=== PATIENT | male | born 1970 | race Caucasian/White ===

== ENCOUNTER 2021-02-05 05:12 | Emergency (ER) | payer BC ==
[~2021-02-05] VITALS: Ht 177.8 cm; Wt 102.1 kg
--- NOTE | 2021-02-05 05:22 | NUR ---
pt bib RA 83 for alcohol intoxication. Pt. was picked up by [facility] outside of [facility]. Pt. recently left a rehab center in [place]. Pt states he doesn't remember how he got there or what happened. Pt. vomited in ambulance. bgc in field was 112.
--- NOTE | 2021-02-05 05:29 | NUR ---
Dr. Saini at bedside for mse.
[2021-02-05] MEDS ORDERED: IV NORMAL SALINE 1000 ML BAG IV ONE (05:30)
[2021-02-05] MEDS ORDERED: ONDANSETRON 4 MG/2 ML VIAL IV ONE ×2 (05:30→08:15)
[2021-02-05] MEDS ORDERED: ONDANSETRON 4 MG/2 ML VIAL ONE ×2 (05:44→08:29)
--- NOTE | 2021-02-05 05:53 | NUR ---
Pt. states sober living facility he was released from is called [facility]. All side rails up, comfort measures offered. VSS. pt. is restless and emotionally labile but able to be calmed down with verbal reorientation at this time. Will continue to monitor.
[2021-02-05 06:13] LABS: MEAN CORPUSCULAR HEMOGLOBIN 34.4 uug (23.8-33.4); MEAN CORPUSCULAR VOLUME 96.8 fL (73.0-96.2); PLATELET COUNT (AUTO) 295 K/uL (152-348)
[2021-02-05 06:25] LABS: CARBON DIOXIDE 26 mmol/L (21-32); CHLORIDE 108 mmol/L (98-107); CREATININE 0.7 mg/dL (0.6-1.3); GLUCOSE 96 mg/dL (74-106); POTASSIUM 3.3 mmol/L (3.5-5.1); UREA NITROGEN, BLOOD 10 mg/dL (7-18)
[2021-02-05 06:26] LABS: ETHANOL 68 MG/DL (0-0)
--- NOTE | 2021-02-05 06:31 | NUR ---
Pts sp02 dropped to 91% on RA and pt. reported SOB. Pt. placed on 1L nc oxygen, sp02 is now 96%. Pt. reports that he "had a clot in his left lung in august, and is on Eliquis but has not been taking it" . Dr. Saini made aware.
[2021-02-05 06:33] LABS: ACETAMINOPHEN < 2.0 ug/mL (10-30); ALANINE AMINOTRANSFERASE 42 U/L (16-63); ALKALINE PHOSPHATASE 63 U/L (50-136); ASPARTATE AMINOTRANSFERASE 30 U/L (15-37); BILIRUBIN,DIRECT < 0.1 mg/dL (0.0-0.2); BILIRUBIN,TOTAL 0.2 mg/dL (0.2-1.0); TOTAL PROTEIN, SERUM 6.1 g/dL (6.4-8.2)
[2021-02-05 06:34] LABS: MAGNESIUM 1.6 mg/dL (1.8-2.4); PHOSPHOROUS 2.8 mg/dL (2.5-4.9)
[2021-02-05 07:30] LABS: *BILIRUBIN,URIN NEGATIVE (NEGATIVE); *BLOOD, URINE 2+ (NEGATIVE); *CLARITY,URINE CLEAR (CLEAR); *COLOR,URINE YELLOW (YELLOW); *KETONES,URINE TRACE (NEGATIVE); *UROBILINOGEN,URINE 0.2 E.U./dl (NORMAL); LEUKOCYTE ESTERASE ,URINE NEGATIVE (NEGATIVE); NITRITE, URINE NEGATIVE (NEGATIVE); PH,URINE 5.5 (5.0-8.0); UGLUCOSE NEGATIVE (NEGATIVE)
[2021-02-05] MEDS ORDERED: MAGNESIUM SULFATE/D5W 100 ML IV ONE (07:30)
[2021-02-05] MEDS ORDERED: MAGNESIUM SULFATE/D5W 200 ML ONE (07:34)
--- NOTE | 2021-02-05 07:34 | NUR ---
received patient in shift report from Jayne [place]
[2021-02-05 07:49] LABS: *AMPHETAMINE, URINE NEGATIVE (NEGATIVE); *CANNABINOID, URINE NEGATIVE (NEGATIVE); *COCCAINE, URINE NEGATIVE (NEGATIVE); *OPIATE, URINE NEGATIVE (NEGATIVE); *PHENCYCLIDINE SCREEN,URINE NEGATIVE (NEGATIVE)
[2021-02-05] MEDS ORDERED: IPRATROPIUM BROMIDE 0.5 MG/2.5 ML NEBU NEB ONE (08:15)
[2021-02-05] MEDS ORDERED: LORAZEPAM 2 MG/1 ML VIAL IV ONE (08:15)
[2021-02-05] MEDS ORDERED: PANTOPRAZOLE SODIUM 40 MG VIAL IV ONE (08:15)
[2021-02-05] MEDS ORDERED: ALBUTEROL SULFATE 2.5 MG/3 ML NEBU NEB ONE (08:15)
[2021-02-05] MEDS ORDERED: PANTOPRAZOLE SODIUM 40 MG VIAL ONE (08:29)
[2021-02-05] MEDS ORDERED: LORAZEPAM 2 MG/1 ML VIAL ONE (08:29)
[2021-02-05] MEDS ORDERED: ALBUTEROL SULFATE 2.5 MG/3 ML NEBU ONE (09:35)
[2021-02-05] MEDS ORDERED: IPRATROPIUM BROMIDE 0.5 MG/2.5 ML NEBU ONE (09:35)
[2021-02-05] MEDS ORDERED: NEOMY/BACITRA/POLYMYXIN B OINT UD PACKET TP ONE ×2 (10:15→10:22)
--- NOTE | 2021-02-05 10:21 | NUR ---
Triple antibiotic applied to right toe abrasion and dressed with nonadhereant ABD pad and coban wrap
--- NOTE | 2021-02-05 10:31 | NUR ---
[facility] called at this time and states they will arrange for patient to return to their detox center
[2021-02-05] MEDS ORDERED: TAMSULOSIN HCL 0.4 MG CAP.SR.24H ONE (10:49)
--- NOTE | 2021-02-05 11:55 | NUR ---
Spoke with Leonid to from [facility], Leonid states he will send a uber to [place] patient from ER and transfer to detox facility
[2021-02-05 12:24] LABS: WBC,URINE NONE SEEN /HPF (0-3)
[2021-02-05 12:25] LABS: BACTERIA,URINE NONE SEEN /HPF (NONE SEEN)
--- NOTE | 2021-02-05 13:25 | NUR ---
1st contact with patient: AOX4, calm & breathing easily, patient is now waiting for his ride back to addiction rehab home. IV line was discontinued by ABHINAV Peralta.
--- NOTE | 2021-02-05 13:26 | NUR ---
Patient discharged to his rehab home in stable condition with slow steady gait.. Written and verbal after care instructions given to patient. Patient verbalized understanding and compliance of instructions. Stressed follow up with his primary doctor and his addiction doctor or return to ER for worsening s/s.
== END 2021-02-05 13:26 | disposition other institution (70) ==
LOC: ER 05:16
DX: F10.129 Alcohol abuse with intoxication, unspecified (principal); Y90.3 Blood alcohol level of 60-79 mg/100 ml; J44.1 Chronic obstructive pulmonary disease with (acute) exacerbation; E83.42 Hypomagnesemia; Z20.822 Contact with and (suspected) exposure to COVID-19; R11.2 Nausea with vomiting, unspecified; E87.6 Hypokalemia; Z82.49 Family history of ischemic heart disease and other diseases of the circulatory system; F17.210 Nicotine dependence, cigarettes, uncomplicated; Z86.711 Personal history of pulmonary embolism; Z91.14 Patient's other noncompliance with medication regimen; J96.01 Acute respiratory failure with hypoxia; J81.0 Acute pulmonary edema
CPT/HCPCS: 36415; 70450; 71045; 72125; 80048; 80076; 80299; 80307; 80320; 81001; 83690; 83735; 83880; 84100; 84484; 85025; 85379; 87426; 93005; 94640; 96361; 96365; 96366; 96375; 96376; 99291; C9113; J2060; J2405 ×2; J3475; 70030-TC; A4663; G0480; J3590; J7030

== ENCOUNTER 2022-09-22 23:59 | Emergency (ER) | payer BC ==
[~2022-09-22] VITALS: Ht 182.9 cm; Wt 104.3 kg
[2022-09-23] MEDS ORDERED: THIAMINE HCL 200 MG/2 ML VIAL ONE (00:13)
[2022-09-23] MEDS ORDERED: IV NORMAL SALINE 1000 ML BAG IV ONE (00:15)
[2022-09-23] MEDS ORDERED: THIAMINE HCL 200 MG/2 ML VIAL IV ONE (00:15)
[2022-09-23 00:29] LABS: HEMATOCRIT 41.2 % (36.7-47.1); MEAN CORPUSCULAR HEMOGLOBIN 32.8 uug (23.8-33.4); MEAN CORPUSCULAR VOLUME 96.8 fL (73.0-96.2); PLATELET COUNT (AUTO) 252 K/uL (152-348)
--- NOTE | 2022-09-23 00:34 | NUR ---
BIB ambulance s/p seizure, informed of plan of care, placed on monitor, seizure pads applied to bed as per protocol. Patient with multiple scabbed areas to BLE, IVF infusing as per order. No s/s of any distress noted or seizure activity at this time. Patient trying to get out of bed, redircted and positioned for comfort. side rails up, will continue to monitor.
--- NOTE | 2022-09-23 00:41 | NUR ---
Patient given urinal, aware of need for specimen.
--- NOTE | 2022-09-23 00:50 | NUR ---
Urine sent to lab.
[2022-09-23 00:55] LABS: CREATININE 0.7 mg/dL (0.6-1.3); POTASSIUM 3.5 mmol/L (3.5-5.1)
[2022-09-23 01:01] LABS: BILIRUBIN,DIRECT 0.1 mg/dL (0.0-0.2); BILIRUBIN,TOTAL 0.3 mg/dL (0.2-1.0)
--- NOTE | 2022-09-23 01:05 | NUR ---
Patient off unit to CT via rney.
[2022-09-23 01:11] LABS: *AMPHETAMINE, URINE NEGATIVE (NEGATIVE); *CANNABINOID, URINE NEGATIVE (NEGATIVE); *COCCAINE, URINE NEGATIVE (NEGATIVE); *PHENCYCLIDINE SCREEN,URINE NEGATIVE (NEGATIVE)
--- NOTE | 2022-09-23 01:16 | NUR ---
ER informed of latic level of 2.3 at this time, no new orders.
--- NOTE | 2022-09-23 01:31 | NUR ---
Patient more oriented, following commands, restraints removed.
--- NOTE | 2022-09-23 02:22 | NUR ---
Patient continues to rest in bed, awaiting his medical delivery driver. no seizue activity noted side rails remain up, frequent monitoring done.
[2022-09-23] MEDS ORDERED: CHLORDIAZEPOXIDE HCL 25 MG CAPSULE PO ONE (02:45)
[2022-09-23] MEDS ORDERED: CHLORDIAZEPOXIDE HCL 25 MG CAPSULE ONE (02:48)
--- NOTE | 2022-09-23 02:51 | NUR ---
patient sitting up at bedside eating pizza, no voiced c/o pain or discomfort.
[2022-09-23] MEDS ORDERED: CYANOCOBALAMIN 1000 MCG/ML VIAL ONE (03:28)
[2022-09-23] MEDS ORDERED: CYANOCOBALAMIN 1000 MCG/ML VIAL IM ONE (03:30)
[2022-09-23] MEDS ORDERED: KETOROLAC TROMETHAMINE 60 MG INJ IM ONE ×2 (03:39→03:45)
[2022-09-23 04:15] VITALS: BP 126/83
--- NOTE | 2022-09-23 04:15 | NUR ---
HL REMOVED, CALLED FACILITY TO INFORM HE WILL BE RETURNING, SPOKE WITH VON. ACI GIVEN, REMAINS STABLE FOR DISCHARGE VIA UBER.
== END 2022-09-23 04:17 | disposition home or self-care (01) ==
LOC: ER 09-23 00:02
DX: F10.139 Alcohol abuse with withdrawal, unspecified (principal); R56.9 Unspecified convulsions; E53.8 Deficiency of other specified B group vitamins; F17.210 Nicotine dependence, cigarettes, uncomplicated; Y90.6 Blood alcohol level of 120-199 mg/100 ml
CPT/HCPCS: 80076; 80048; 82607; 83735; 85025; 36415; 93005; 70450; 99285; 96361; 96374; 96372 ×2; 83605 ×2; 80320; 80307; J3420; J1885; J3411; J7040; A4663; G0480